=== PATIENT | male | born 1980 | race Caucasian/White ===

== ENCOUNTER 2017-04-15 17:39 | Emergency (ER) | payer OTHER ==
[2017-04-15 18:02] VITALS: BP 126/73
--- NOTE | 2017-04-15 18:27 | RAD ---
INDICATION: Left ankle injury COMPARISON: None TECHNIQUE: AP, lateral, and oblique views were obtained. FINDINGS: There is lateral soft tissue swelling. There is no acute fracture or dislocation. IMPRESSION: LATERAL SOFT TISSUE SWELLING.
--- NOTE | 2017-04-15 21:23 | UC ---
Sandro Pabon Nilda, scribed for Andrea Steven MD on 04/15/17 at 1912 . Lower Extremity/Ankle HPI - HPI Summary HPI Summary: This patient is a 36 year old M presenting to [facility] [place] with a chief complaint of constant left ankle swelling and pain s/p rolling his ankle while tumbling down a flight of stairs earlier this evening. Pt states he heard his ankle pop during the fall. The patient rates the sharp, aching pain 6/10 in severity. Symptoms aggravated by ambulation and alleviated by rest. - History of Current Complaint Chief Complaint: UCLowerExtremity Stated Complaint: ANKLE INJURY Time Seen by Provider: 04/15/17 19:01 Hx Obtained From: Patient Onset/Duration: Sudden Onset, Lasting Hours, Still Present Severity Currently: Moderate Pain Intensity: 6 Pain Scale Used: 0-10 Numeric Aggravating Factor(s): Ambulation Alleviating Factor(s): Rest Able to Bear Weight: No - Allergies/Home Medications Allergies/Adverse Reactions: Allergies Allergy/AdvReac Type Severity Reaction Status Date / Time No Known Allergies Allergy Verified 04/15/17 17:59 Home Medications: Home Medications NK [No Home Medications Reported] 04/15/17 [History Confirmed 04/15/17] PMH/Surg Hx/FS Hx/Imm Hx Previously Healthy: No - Surgical History Surgical History: Yes Surgery Procedure, Year, and Place: appy - Family History Known Family History: Negative: Hypertension, Diabetes - Social History Lives: With Family Alcohol Use: Occasionally Substance Use Type: None Smoking Status (MU): Never Smoked Tobacco Review of Systems Respiratory: Other - negative SOB Musculoskeletal: Decreased ROM, Other: - ankle pain and swelling All Other Systems Reviewed And Are Negative: Yes Physical Exam Triage Information Reviewed: Yes Vital Signs: Initial Vital Signs Temp 98 F 04/15/17 18:00 Pulse 75 04/15/17 18:00 Resp 16 04/15/17 18:00 BP 126/73 04/15/17 18:00 Pulse Ox 100 04/15/17 18:00 Vital Signs Reviewed: Yes - Additional Comments General: well-appearing, no pain distress Skin: warm, color reflects adequate perfusion, dry Head: normal Eyes: EOMI, VLADIMIR ENT: normal Neck: supple, nontender Respiratory: CTA, breath sounds present Cardiovascular: RRR Abdomen: soft, nontender Bowel: present Musculoskeletal: Swelling and tenderness over left malleolus, foot and calf nontender, Achilles tendon intact. Normal capillary refill, normal pulses. Neurological: normal, sensory/motor intact, A&O x3 Psychological: affect/mood appropriate Diagnostics - Radiology Left ankle XR Radiology Interpretation Completed By: Radiologist - Left Ankle XR, per radiologist, reveals lateral soft tissue swelling. Dr. Steven reviewed this report. Lower Extremity Course/Dx - Course Course Of Treatment: Left Ankle XR, per radiologist, reveals lateral soft tissue swelling. Dr. Steven reviewed this report. Medications and allergies reviewed. - Differential Dx/Diagnosis Provider Diagnoses: LEFT ANKLE SPRAIN Discharge - Discharge Plan Condition: Stable Disposition: HOME Patient Education Materials: Ankle Sprain (ED), Crutch Instructions (ED) Referrals: [facility] PHYSICIAN REFERRAL [Outside] No Primary Care Phys,NOPCP [Primary Care Provider] - Additional Instructions: FOLLOW UP WITH YOUR DOCTOR. GET RECHECKED FOR ANY WORSENING OF YOUR CONDITION OR QUESTIONS OR CONCERNS. The documentation as recorded by the Sandro panchal Nilda accurately reflects the service I personally performed and the decisions made by , Andrea Steven MD.
== END 2017-04-15 19:15 | disposition home or self-care (01) ==
LOC: UCEAST 17:39
DX: S93.402A Sprain of unspecified ligament of left ankle, initial encounter (principal); W10.9XXA Fall (on) (from) unspecified stairs and steps, initial encounter; Y93.9 Activity, unspecified; Y92.9 Unspecified place or not applicable; Y99.9 Unspecified external cause status
CPT/HCPCS: 99213; G0463

== ENCOUNTER 2017-07-14 08:32 | Emergency (ER) | payer OTHER ==
--- NOTE | 2017-07-14 09:16 | ED ---
Throat Pain/Nasal Congestion - HPI Summary HPI Summary: 36 male presents to ED with complaints of dental pain that has been ongoing for the past 3 days. States he was seen by [facility] on Saturday, and placed on amoxicillin and diflusinil. States he woke up early this morning from the pain radiating to his left ear and eye and throbbing. Denies any fever or discharge. No other complaints. No PMHx. Is supposed to have tooth pulled this week. - History of Current Complaint Chief Complaint: EDDentalPain Time Seen by Provider: 07/14/17 08:47 Hx Obtained From: Patient Onset/Duration: Sudden Onset, Lasting Days, Still Present, Worse Since Severity: Severe - at times Cough: None - Allergies/Home Medications Allergies/Adverse Reactions: Allergies Allergy/AdvReac Type Severity Reaction Status Date / Time No Known Allergies Allergy Verified 07/14/17 08:37 PMH/Surg Hx/FS Hx/Imm Hx Endocrine/Hematology History: Denies: Hx Anticoagulant Therapy, Hx Diabetes Cardiovascular History: Denies: Hx Hypertension Respiratory History: Denies: Hx Asthma - Surgical History Surgery Procedure, Year, and Place: appy - Immunization History Immunizations Up to Date: Yes Infectious Disease History: No Infectious Disease History: Denies: Hx Clostridium Difficile, Hx Hepatitis, Hx Human Immunodeficiency Virus (HIV), Hx of Known/Suspected MRSA, Hx Shingles, Hx Tuberculosis, Hx Known/ Suspected VRE, Hx Known/Suspected VRSA, History Other Infectious Disease, Traveled Outside the [place] in Last 30 Days - Family History Known Family History: Negative: Hypertension, Diabetes - Social History Alcohol Use: Occasionally Substance Use Type: Reports: None Smoking Status (MU): Never Smoked Tobacco Review of Systems Constitutional: Negative Positive: Dental Pain Cardiovascular: Negative Respiratory: Negative Neurological: Negative All Other Systems Reviewed And Are Negative: Yes Physical Exam Triage Information Reviewed: Yes Vital Signs On Initial Exam: Initial Vitals Temp Pulse Resp BP Pulse Ox 97.5 F 70 12 139/77 99 07/14/17 08:35 07/14/17 08:35 07/14/17 08:35 07/14/17 08:35 07/14/17 08:35 Vital Signs Reviewed: Yes Appearance: Positive: Well-Appearing, Well-Nourished, Pain Distress - mild/ moderate Skin: Positive: Warm, Skin Color Reflects Adequate Perfusion, Dry. Negative: Cold, Numb, Cyanosis @, Pale, Erythema @ Head/Face: Positive: Normal Head/Face Inspection Eyes: Positive: Conjunctiva Clear ENT: Positive: Normal ENT inspection, Hearing grossly normal, Pharynx normal, Nasal congestion, TMs normal. Negative: TM bulging, TM dull, Tonsillar swelling , Tonsillar exudate, Sinus tenderness Dental: Positive: Gross Decay/Caries @, Dental Fracture @. Negative: Abscess @ - no palpated, ttp left upper molars Neck: Positive: Supple, Nontender, No Lymphadenopathy Respiratory/Lung Sounds: Positive: Clear to Auscultation, Breath Sounds Present. Negative: Rales, Rhonchi, Wheezes Cardiovascular: Positive: Normal, RRR, Pulses are Symmetrical in both Upper and Lower Extremities. Negative: Murmur, Rub Musculoskeletal: Positive: Normal, Strength/ROM Intact Neurological: Positive: Normal, Sensory/Motor Intact, Alert, Oriented to Person Place, Time Diagnostics - Vital Signs Vital Signs Temp Pulse Resp BP Pulse Ox 07/14/17 08:35 97.5 F 70 12 139/77 99 - Laboratory Lab Statement: Any lab studies that have been ordered have been reviewed, and results considered in the medical decision making process. EENT Course/Dx - Course Course Of Treatment: appears to be suffering from dental abscess, deep, and pain from it. already on NSAID and antibiotic. will give stronger analgesic only 6 tabs to get through until tomorrow or saturday when he sees dentist for further treatment. No other concerns at this time. normal vitals and physical exam otherwise. Follow up dentist. topical anesthetic, warm compresses and salt water swishes. - Differential Diagnoses Differential Diagnoses: Dental Abscess, Fractured Tooth - Diagnoses Provider Diagnoses: Pain, dental, Dental infection Discharge - Discharge Plan Condition: Good Disposition: HOME Prescriptions: HYDROcodone/ACETAMIN 5-325 MG* [[place] 5-325 TAB*] 1 tab PO Q6H PRN #6 tab MDD 2 PRN Reason: Pain Patient Education Materials: Dental Abscess (ED), Toothache (ED) Referrals: No Primary Care Phys,NOPCP [Primary Care Provider] - Additional Instructions: Continue prescribed antibiotic and antiinflammatory as previously prescribed by dentist. Take prescribed pain medication only as needed for breakthrough pain. Increase fluid intake. Salt water gargles, warm compresses, good oral hygiene and OTC topical orajel. Any new or worsening symptoms please seek medical attention. Follow up with dentist on Saturday.
[2017-07-14] MEDS ORDERED: HYDROcodone/ACETAMIN 5-325 MG* 1 TAB PO ONE (09:40)
[2017-07-14 10:00] VITALS: BP 119/66
== END 2017-07-14 09:55 | disposition home or self-care (01) ==
LOC: ED 08:32
DX: K04.7 Periapical abscess without sinus (principal)
CPT/HCPCS: 99282